=== PATIENT | male | born 1990 | race Caucasian/White ===

== ENCOUNTER 2017-12-06 09:20 | Emergency (ER) | payer OTHER ==
--- NOTE | 2017-12-06 09:30 | EDM.PDOC ---
ED HPI GENERAL MEDICAL PROBLEM - General Stated Complaint: SOB,CONGESTION,VOMITTING,DIARHEA Time Seen by Provider: 12/06/17 09:20 Source of Information: Reports: Patient - History of Present Illness INITIAL COMMENTS - FREE TEXT/NARRATIVE: 27 y.o.w.m -quit tobacco use 3 months ago-came to the ed due to coughing off blood, N/V/D welch 3 days. No nausea now. No F/C no C/P or any other acute medical issues. BP 147/113 RR 18 Pulse 112 temp 36.8 Pulse ox 100% on RA Onset Date: 12/03/17 Onset Time: 07:00 Duration: Day(s):, Getting Worse Location: Reports: Abdomen, Generalized Quality: Reports: Other (N/V/D) Improves with: Reports: Rest Worsens with: Reports: Movement Context: Reports: Other (Coughing off blood, N/V/D) Associated Symptoms: Reports: Cough, Nausea/Vomiting - Related Data Allergies Allergy/AdvReac Type Severity Reaction Status Date / Time No Known Allergies Allergy Verified 12/06/17 09:38 Home Meds: Home Meds Ondansetron [Zofran ODT] 4 mg PO Q6H PRN #10 tab.dis 12/06/17 [Rx] Sulfamethoxazole/Trimethoprim [Bactrim Ds Tablet] 1 each PO BID #20 tablet 12/06 [Rx] ED ROS GENERAL - Review of Systems Review Of Systems: See Below Constitutional: Reports: Weakness HEENT: Reports: No Symptoms Respiratory: Reports: Cough, Hemoptysis Cardiovascular: Reports: No Symptoms Endocrine: Reports: No Symptoms GI/Abdominal: Reports: Nausea (not now) : Reports: No Symptoms Musculoskeletal: Reports: No Symptoms Skin: Reports: No Symptoms Neurological: Reports: No Symptoms Psychiatric: Reports: No Symptoms Hematologic/Lymphatic: Reports: No Symptoms Immunologic: Reports: No Symptoms ED EXAM, GENERAL - Physical Exam Exam: See Below Exam Limited By: No Limitations General Appearance: Alert, WD/WN, Mild Distress Eye Exam: Bilateral Eye: Normal Inspection Ears: Normal External Exam Ear Exam: Bilateral Ear: Auricle Normal Nose: Normal Inspection, Normal Mucosa, No Blood Throat/Mouth: Normal Inspection, Normal Lips, Normal Voice, No Airway Compromise Head: Atraumatic, Normocephalic Neck: Normal Inspection, Supple, Non-Tender, Full Range of Motion Respiratory/Chest: No Respiratory Distress, No Accessory Muscle Use, Chest Non- Tender, Rhonchi Cardiovascular: Normal Peripheral Pulses, Regular Rate, Rhythm, No Edema, No Gallop, No JVD, No Murmur, No Rub GI/Abdominal: Normal Bowel Sounds, Soft, Non-Tender, No Organomegaly, No Distention, No Abnormal Bruit, No Mass, Pelvis Stable (Male) Exam: No Hernia Rectal (Males) Exam: Deferred Back Exam: Normal Inspection, Full Range of Motion Extremities: Normal Inspection, Normal Range of Motion, Non-Tender, No Pedal Edema Neurological: Alert, Oriented, CN II-XII Intact, Normal Cognition, Normal Gait, No Motor/Sensory Deficits Psychiatric: Normal Affect, Normal Mood Skin Exam: Warm, Dry, Intact, Normal Color, No Rash Lymphatic: No Adenopathy Course - Vital Signs Text/Narrative:: 27 y.o.w.m -quit tobacco use 3 months ago-came to the ed due to coughing off blood, N/V/D welch 3 days. No nausea now. No F/C no C/P or any other acute medical issues. BP 147/113 RR 18 Pulse 112 temp 36.8 Pulse ox 100% on RA PE: WNWD W M with a h/o Hemoptosis, N/V/D, is doing better now Labs: WBC nl HGB 17.1 HCT 51 K 3.4 Imaging: CXR NAD Impression: Hemotosis, Gastroenteritis, Dehydration. Hypokalemia Tx: Duoneb, Was able to drink water. Reexam: Pt was doing better Plan: D/C with instructions Last Recorded V/S: Last Vital Signs Temp 36.8 C 12/06/17 09:20 Pulse 81 12/06/17 10:45 Resp 20 12/06/17 10:45 BP 151/111 H 12/06/17 10:45 Pulse Ox 100 12/06/17 10:45 - Orders/Labs/Meds Orders: Active Orders 24 hr Category Date Time Status RT Aerosol Therapy [RC] ASDIRECTED Care 12/06/17 09:28 Active Chest 2V [CR] Stat Exams 12/06/17 09:27 Taken Labs: Laboratory Tests 12/06/17 12/06/17 Range/Units 09:35 09:35 WBC 9.8 (4.5-12.0) X10-3/uL RBC 5.93 H (4.30-5.75) x10(6)uL Hgb 17.3 H (11.5-15.5) g/dL Hct 52.0 H (30.0-51.3) % MCV 87.8 (80-96) fL MCH 29.2 (27.7-33.6) pg MCHC 33.3 (32.2-35.4) g/dL RDW 12.5 (11.5-15.5) % Plt Count 386 H (125-369) X10(3)uL MPV 8.8 (7.4-10.4) fL Neut % (Auto) 71.5 (46-82) % Lymph % (Auto) 18.0 (13-37) % [place] % (Auto) 7.0 (4-12) % Eos % (Auto) 1 (1.0-5.0) % Baso % (Auto) 3 H (0-2) % Neut # (Auto) 7.0 (1.6-8.3) # Lymph # (Auto) 1.8 (0.6-5.0) # [place] # (Auto) 0.7 (0.0-1.3) # Eos # (Auto) 0.0 (0.0-0.8) # Baso # (Auto) 0.3 H (0.0-0.2) # Sodium 141 (135-145) mmol/L Potassium 3.4 L (3.5-5.3) mmol/L Chloride 104 (100-110) mmol/L Carbon Dioxide 24 (21-32) mmol/L BUN 13 (7-18) mg/dL Creatinine 1.1 (0.70-1.30) mg/dL Est Cr Clr Drug Dosing TNP Estimated GFR (MDRD) > 60 (>60) BUN/Creatinine Ratio 11.8 (9-20) Glucose 100 (80-116) mg/dL Calcium 9.1 (8.6-10.2) mg/dL Meds: Medications Discontinued Medications Generic Name Dose Route Start Last Admin Trade Name Freq PRN Reason Stop Dose Admin Albuterol/Ipratropium 3 ml 12/06/17 11:00 Duoneb 3.0-0.5 Mg/3 Ml NEB QIDRT FRANK Albuterol/Ipratropium 3 ml 12/06/17 09:40 12/06/17 09:51 Duoneb 3.0-0.5 Mg/3 Ml NEB 12/06/17 09:41 3 ml ONETIME ONE Administration Departure - Departure Time of Disposition: 10:42 Disposition: Home, Self-Care 01 Condition: Good Clinical Impression: Bronchitis, Gastroenteritis, Dehydration - Discharge Information Prescriptions: Ondansetron [Zofran ODT] 4 mg PO Q6H PRN #10 tab.dis PRN Reason: for nausea Sulfamethoxazole/Trimethoprim [Bactrim Ds Tablet] 1 each PO BID #20 tablet Instructions: Viral Gastroenteritis, Adult, [id number], Dehydration, Adult, [id number], Acute Bronchitis, Adult, [id number] Referrals: PCP,Not In Area [Primary Care Provider] - Forms: ED Department Discharge Additional Instructions: Please advance diet as tolerated, Please quit tobacco use entirely, Please take the meds as tolerated, please f/u with your PMD, please come back if your symptoms worsen acutely - My Orders Last 24 Hours: My Active Orders 12/06/17 09:27 Chest 2V [CR] Stat 12/06/17 09:28 RT Aerosol Therapy [RC] ASDIRECTED - Assessment/Plan Last 24 Hours: My Active Orders 12/06/17 09:27 Chest 2V [CR] Stat 12/06/17 09:28 RT Aerosol Therapy [RC] ASDIRECTED
[2017-12-06] MEDS ORDERED: Albuterol/Ipratropium 3.0-0.5 MG/3 ML Neb Soln NEB ONE (09:40)
[2017-12-06] MEDS ORDERED: Albuterol/Ipratropium 3.0-0.5 MG/3 ML Neb Soln NEB SCH (11:00)
--- NOTE | 2017-12-08 10:30 | CR ---
INDICATION: Coughing up blood - two times, previous smoker. CHEST: PA and lateral views of the chest revealed a very minimal dextroconcave scoliosis of the lower thoracic spine. The heart, mediastinum, and bony thorax were otherwise unremarkable. A consolidating pneumonia or effusion was not identified. However, there is moderate bronchial wall cuffing at the lung bases, which may represent active peribronchial disease and should be correlated clinically. IMPRESSION: 1. Basilar bronchial wall cuffing may represent active peribronchial disease. No other findings identified to suggest an acute process. 2. Minimal scoliosis. MTDD
== END 2017-12-06 11:04 | disposition home or self-care (01) ==
LOC: FB.ED 09:20
DX: J40 Bronchitis, not specified as acute or chronic (principal); R04.2 Hemoptysis; K52.9 Noninfective gastroenteritis and colitis, unspecified; E87.6 Hypokalemia
CPT/HCPCS: 36415; 71046; 80048; 85025; 94640; 99283; J7620